=== PATIENT | female | born 1995 | race Caucasian/White ===

== ENCOUNTER 2018-04-24 06:08 | Inpatient (IN) | payer OTHER ==
[~2018-04-24] VITALS: Ht 170.2 cm; Wt 65.8 kg
[2018-04-24 06:29] VITALS: BP 114/70
[2018-04-24] MEDS: LACTATED RINGERS 1,000 ML IV SCH ×3 (07:25→09:37)
[2018-04-24] MEDS: D5%-LACTATED RINGERS 1,000 ML IV SCH ×2 (07:25→15:25)
[2018-04-24] MEDS ORDERED: OXYTOCIN 30U/ 0.9% NaCL 500ML 500 ML IV ONE (07:25)
[2018-04-24] MEDS ORDERED: METOCLOPRAMIDE 5 MG/ML, 2ML IVPush PRN (07:30)
[2018-04-24] MEDS ORDERED: FENTANYL PF 100 MCG/2ML IVPush PRN (07:30)
[2018-04-24] MEDS ORDERED: SODIUM CITRATE/CITRIC ACID 30 ML UDC PO PRN (07:30)
[2018-04-24] MEDS ORDERED: MISOPROSTOL 200 MCG TABLET ONE (07:50)
[2018-04-24] MEDS ORDERED: FENTANYL PF 100 MCG/2ML ONE (07:50)
[2018-04-24] MEDS ORDERED: OXYTOCIN 30U/ 0.9% NaCL 500ML 0 ML ONE (07:50)
[2018-04-24] MEDS ORDERED: LIDOCAINE/PF 1%, 30ML ONE (07:50)
[2018-04-24] MEDS ORDERED: NEWBORN KIT ONE (07:50)
[2018-04-24] MEDS: FENTANYL PF 100 MCG/2ML IV PRN ×2 (07:54→08:15)
[2018-04-24 08:06] LABS: BASOPHILS # (AUTO) 0.02 x10^3/uL (0-0.1); BASOPHILS % (AUTO) 0 % (0-1); EOSINOPHILS # (AUTO) 0.02 x10^3/uL (0-0.4); EOSINOPHILS % (AUTO) 0 % (1-7); LYMPHOCYTES # (AUTO) 1.59 x10^3/uL (1-3.4); LYMPHOCYTES % (AUTO) 13 % (22-44); MD SCAN; MEAN CORPUSCULAR HEMOGLOBIN 33.7 pg (27.0-34.8); MEAN CORPUSCULAR HGB CONC 33.8 g/dL (32.4-35.8); MEAN CORPUSCULAR VOLUME 99.5 fL (80-100); MEAN PLATELET VOLUME 13.4 fL (7.4-10.4); MONOCYTES # (AUTO) 0.62 x10^3/uL (0.2-0.8); MONOCYTES % (AUTO) 5 % (2-9); NEUTROPHILS # (AUTO) 9.95 x10^3/uL (1.8-6.8); NEUTROPHILS % (AUTO) 82 % (42-75); PLATELET COUNT 117 x10^3/uL (130-400); RED BLOOD COUNT 3.79 x10^6/uL (3.82-5.3); RED CELL DISTRIBUTION WIDTH 12.9 % (9.6-15.2)
[2018-04-24] MEDS ORDERED: BUPIVACAINE/PF 0.25% ONE (08:16)
[2018-04-24] MEDS ORDERED: FENTANYL/BUPIV./NS/PF 250 ML EPIDCONT ONE ×2 (08:16→08:20)
[2018-04-24] MEDS ORDERED: LIDOCAINE/PF 1.5%-EPI 1:200K, 30ML ONE (08:20)
[2018-04-24] MEDS ORDERED: BUPIVACAINE 0.25% ONE (08:20)
[2018-04-24] MEDS ORDERED: LIDOCAINE 1%, 20ML ONE (08:20)
[2018-04-24] MEDS ORDERED: PREN1TAB10 PO (09:24)
[2018-04-24] MEDS ORDERED: IBUPROFEN 600 MG TABLET ONE (12:49)
[2018-04-24] MEDS ORDERED: OXYTOCIN 30U/ 0.9% NaCL 500ML 500 ML ONE ×2 (12:49→14:32)
[2018-04-24] MEDS ORDERED: ACETAMINOPHEN 325 MG TABLET PO PRN ×2 (13:00)
[2018-04-24] MEDS ORDERED: BISACODYL 10 MG SUPP PR PRN (13:00)
[2018-04-24] MEDS ORDERED: CARBOPROST TROMETHAMINE 250 MCG/ML, 1ML IM PRN (13:00)
[2018-04-24] MEDS ORDERED: OXYcodone/APAP 5/325MG TABLET PO PRN ×2 (13:00)
[2018-04-24] MEDS ORDERED: GLYCERIN ADULT SUPP PR PRN (13:00)
[2018-04-24] MEDS ORDERED: MISOPROSTOL 200 MCG TABLET PR PRN (13:00)
[2018-04-24] MEDS ORDERED: ONDANSETRON 2MG/ML, 2ML IV PRN (13:00)
[2018-04-24] MEDS ORDERED: METHYLERGONOVINE 0.2 MG/ML IM PRN (13:00)
[2018-04-24] MEDS: IBUPROFEN 600 MG TABLET PO PRN ×2 (13:57→19:37)
[2018-04-24] MEDS: OXYTOCIN 30U/ 0.9% NaCL 500ML 500 ML IV SCH ×2 (14:45→22:37)
[2018-04-24 15:20] VITALS: BP 109/68
[2018-04-24 19:30] VITALS: BP 113/71
[2018-04-24] MEDS: DOCUSATE 100 MG CAPSULE PO PRN (19:37)
[2018-04-24 20:34] LABS: MEAN CORPUSCULAR HEMOGLOBIN 33.6 pg (27.0-34.8); MEAN CORPUSCULAR VOLUME 101.5 fL (80-100); RED BLOOD COUNT 3.76 x10^6/uL (3.82-5.3); RED CELL DISTRIBUTION WIDTH 13.4 % (9.6-15.2)
[2018-04-24 20:55] LABS: BASOPHILS # (AUTO) 0.08 x10^3/uL (0-0.1); BASOPHILS % (AUTO) 1 % (0-1); EOSINOPHILS # (AUTO) 0.04 x10^3/uL (0-0.4); EOSINOPHILS % (AUTO) 0 % (1-7); LYMPHOCYTES # (AUTO) 1.91 x10^3/uL (1-3.4); LYMPHOCYTES % (AUTO) 17 % (22-44); MD SCAN; MEAN PLATELET VOLUME 13.1 fL (7.4-10.4); MONOCYTES % (AUTO) 8 % (2-9); NEUTROPHILS % (AUTO) 74 % (42-75); PLATELET COUNT 84 x10^3/uL (130-400)
[2018-04-24] MEDS ORDERED: FENTANYL/BUPIV./NS/PF 250 ML EPIDCONT SCH (21:04)
[2018-04-24] MEDS ORDERED: LACTATED RINGERS 1,000 ML IV SCH (21:04)
[2018-04-24] MEDS ORDERED: EPHEDRINE 50 MG/ML, 1ML IVPush PRN (21:30)
[2018-04-24] MEDS ORDERED: NALOXONE 0.4 MG/ML, 1ML IVPush PRN (21:30)
[2018-04-24] MEDS ORDERED: DIPHENHYDRAMINE 50 MG/ML, 1ML IVPush PRN (21:30)
[2018-04-24] MEDS ORDERED: LACTATED RINGERS 1,000 ML IVBOLUS PRN (21:30)
[2018-04-24] MEDS ORDERED: ONDANSETRON 2MG/ML, 2ML IVPush PRN (21:30)
[2018-04-25 00:19] VITALS: BP 94/57
[2018-04-25] MEDS: IBUPROFEN 600 MG TABLET PO PRN ×2 (02:56→09:02)
[2018-04-25 03:20] VITALS: BP 99/59
[2018-04-25] MEDS: DOCUSATE 100 MG CAPSULE PO PRN (09:00)
[2018-04-25] MEDS: PRENATAL VIT/IRON/FA 1 EACH TABLET PO SCH (09:00)
[2018-04-25] MEDS: OXYTOCIN 30U/ 0.9% NaCL 500ML 500 ML IV SCH ×2 (09:02→18:37)
[2018-04-25 09:03] VITALS: BP 106/67
[2018-04-25 12:47] VITALS: BP 108/68
[2018-04-25 19:50] VITALS: BP 114/73
[2018-04-26] MEDS: OXYTOCIN 30U/ 0.9% NaCL 500ML 500 ML IV SCH ×2 (04:37→14:37)
[2018-04-26 07:05] VITALS: BP 106/69
[2018-04-26] MEDS: DOCUSATE 100 MG CAPSULE PO PRN (07:52)
[2018-04-26] MEDS: PRENATAL VIT/IRON/FA 1 EACH TABLET PO SCH (07:52)
[2018-04-26] MEDS: IBUPROFEN 600 MG TABLET PO PRN (07:52)
[2018-04-26] MEDS ORDERED: IBUP-1222 PO (11:07)
== END 2018-04-26 19:08 | disposition home or self-care (01) | DRG 775 ==
LOC: LDOP 06:08 → LDIP 07:51 → 2NW 15:15
PROVIDERS: ADMIT Student in an Organized Health Care Education/Training Program; ATTEND Student in an Organized Health Care Education/Training Program
PROC: 10E0XZZ Delivery of Products of Conception, External Approach (ICD-10-PCS; principal; 2018-04-24)
PROC: 0HQ9XZZ Repair Perineum Skin, External Approach (ICD-10-PCS; 2018-04-24)
PROC: 3E0R3BZ Introduction of Anesthetic Agent into Spinal Canal, Percutaneous Approach (ICD-10-PCS; 2018-04-24)
PROC: 00HU33Z Insertion of Infusion Device into Spinal Canal, Percutaneous Approach (ICD-10-PCS; 2018-04-24)
DX: O76 Abnormality in fetal heart rate and rhythm complicating labor and delivery (principal); O69.81X0 Labor and delivery complicated by cord around neck, without compression, not applicable or unspecified; Z37.0 Single live birth; O99.52 Diseases of the respiratory system complicating childbirth; O70.0 First degree perineal laceration during delivery; J45.909 Unspecified asthma, uncomplicated; Z3A.39 39 weeks gestation of pregnancy
CPT/HCPCS: 36415; 85025; 86850; 86900; 96374; J3010; J3490; J2590; J7120